=== PATIENT | female | born 1995 | race Caucasian/White ===

== ENCOUNTER 2021-08-05 06:47 | Inpatient (IN) | payer OTHER, SELFPAY ==
[2021-08-05 08:00] LABS: Add Manual Diff / Slide Review NO; Basophils Absolute Auto 100 /uL (0-100); Basophils Percent Auto 0.8 % (0-2); Eosinophils Absolute Auto 100 /uL (0-450); Eosinophils Percent Auto 0.9 % (2-4); Hematocrit 28.7 % (36-46); Hemoglobin 9.8 g/dL (12.0-16.0); Lymphocytes Absolute Auto 1600 /uL (1100-4500); Lymphocytes Percent Auto 21.3 % (25-40); Mean Corpuscular Hemoglobin 26.7 PG (26-34); Mean Corpuscular Volume 78.5 fL (80-100); Monocytes Absolute Auto 600 /uL (0-900); Monocytes Percent Auto 8.1 % (3-14); Neutrophils Absolute Auto 5100 /uL (1500-7000); Neutrophils Percent Auto 68.9 % (50-75); Platelet Count 255 X10^3/uL (150-400); Red Blood Cell Count 3.66 X10^6/uL (4.0-5.2); Red Cell Distribution Width 13.3 % (11.6-14.8); White Blood Cell Count 7.4 X10^3/uL (4.5-11.0)
[2021-08-05] MEDS: PENICILLIN G POTASSIUM 5,000,000 UNIT in DEXTROSE 5% IN WATER 250 ML 250 UNIT IV (08:12)
[2021-08-05] MEDS: LACTATED RINGERS 1,000 ML 100 ML IV ×2 (08:18→19:37)
[2021-08-05 08:35] LABS: COVID19 -Nasal RAPID Negative (Negative)
[2021-08-05 09:00] VITALS: BP 117/74
--- NOTE | 2021-08-05 09:41 | PM.OBHP.1 ---
OB HPI Date/Time Date of admission: 08/05/21 Date Patient Seen: 08/05/21 Time Patient Seen: 09:41 History of Present Condition Chief complaint: induction : 3 Para: 1 Estimated Date of Delivery: 08/12/21 Estimated Gestational Age (weeks): 39 Narrative: Lexi Mclean is a 26 year old female admitted for induction for poorly controlled gestational diabetes on metformin Indications Indication for induction OB: gestational diabetes (Poorly controlled on metformin) History of Present care: good care, initiated at week # (11), number of visits (11) and pounds weight gain (2) Dating criteria: based on 1st trimester US only Ultrasounds: normal mid trimester US Obstetrical complications: gestational diabetes (Poorly controlled on metformin) Medical complications: none Preadmission Labs Blood type: B (+) positive -: Antibody screen: negative, GBS status: positive, HBsAG: negative, HIV: negative and RPR/VDLR: negative -: Rubella: immune 1 hr GTT: 154 Fasting blood glucose: 146 Prior (ies) History: 07/01/15 41 week gestation, 9 lb infant, 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 involement occupational status: employed Smoking Status: Former smoker Meds Home Medications and Allergies Home Medications Medication Instructions Recorded Confirmed Type metformin 500 mg tablet 500 mg PO BID 07/30/21 08/05/21 History prenat.vits,nikky,mpt-wxpz-zhmps 1 tab PO DAILY 07/30/21 08/05/21 History Allergies Allergy/AdvReac Type Severity Reaction Status Date / Time Sulfa (Sulfonamide Allergy Severe coma Verified 08/05/21 09:22 Antibiotics) Review of Systems Review of Systems Narrative: Patient denies headaches, scotomata, epigastric pain. Good movement. No leakage of fluid. No contractions. OB Exam Narrative Exam Narrative: Blood pressure 117/74, pulse of 115, patient is afebrile HEENT exam within normal limits. No thyromegaly. Lungs are clear to auscultation percussion. Heart is regular rate and rhythm no S3-S4 murmurs. Abdomen is gravid, nontender. Fetus is vertex. Extremities without edema and nontender. Objective Labs Result Diagrams: 08/05/21 07:54 Labs: Laboratory Results - last 24 hr 08/05/21 08/05/21 08/05/21 07:54 07:54 08:02 WBC 7.4 RBC 3.66 L Hgb 9.8 L Hct 28.7 L MCV 78.5 L MCH 26.7 MCHC 34.0 RDW 13.3 Plt Count 255 Neut % (Auto) 68.9 Lymph % (Auto) 21.3 L [place] % (Auto) 8.1 Eos % (Auto) 0.9 L Baso % (Auto) 0.8 Neut # (Auto) 5100 Lymph # (Auto) 1600 [place] # (Auto) 600 Eos # (Auto) 100 Baso # (Auto) 100 SARS-CoV-2 (PCR) Negative Blood Type B Positive Antibody Screen Negative Assessment and Plan Assessment and Plan Assessment and Plan narrative: 39 week gestation with uncontrolled gestational diabetes on metformin transferred firm advise for delivery in the hospital. Patient declines Pitocin but accepts AROM induction. Anticipate vaginal delivery.
[2021-08-05] MEDS: PENICILLIN POTASSIUM IV ×2 (14:42→20:33)
[2021-08-05] MEDS: WATER IV ×2 (14:42→20:33)
[2021-08-05] MEDS: DEXTROSE 5% IV ×2 (14:42→20:33)
[2021-08-05] MEDS: CALCIUM CARBONATE 500 MG TAB 1000 MG PO (15:33)
--- NOTE | 2021-08-05 18:33 | PM.OBPNLAB ---
Date/Time Date Patient Seen: 08/05/21 Time Patient Seen: 18:33 Pain Control Pain control: tolerating well Pelvic Exam Dilation (cm): 8 Effacement (%): 80 station: -2 Amniotic membrane status: Ruptured Contractions Contractions on admission: irregular Monitor mode: External Contraction frequency (min): 4 Contraction duration (min): 1 Contraction pattern: Irregular Contraction intensity: Moderate Status status: Category l Heart Rate Baseline: 140 Monitor Accelerations: Present Monitor Decelerations: Absent Monitor Variability: Moderate Assessment and Plan Assessment: active labor Plan: continuous present management (Patient has had change in her cervix but contractions still irregular offered Pitocin patient will decide)
[2021-08-05] MEDS: OXYTOCIN PREMIX 30 UNIT/500 ML PLAST..BAG 200 UNIT IV (19:38)
[2021-08-05] MEDS: OXYTOCIN 10 UNIT/ML VIAL IM (21:57)
--- NOTE | 2021-08-05 22:02 | PM.OBPRVD ---
Events: Gestational Diabetes (Poor control with metformin) and Labor Induction (AROM and IV Pitocin) Labor & Delivery Delivery date: 08/05/21 Intrapartal Events: None Induction method: AROM Delivery augmentation: pitocin Delivery monitor: external FHT and external uterine Route of delivery: L&D Laceration Description: None Estimated blood loss (mL): 300 Anesthesia Type: None Narrative: Patient arrived on Labor and delivery for induction for poorly controlled diabetes with metformin. The patient was started on IV penicillin for positive group B strep culture. She was AROM for clear fluid. Eventually with no significant progress the patient was agreeable to start low-dose Pitocin. She then went into active labor. heart tones category 1 to category 2 throughout labor. Just prior to becoming complete the fetus had some variable decelerations but remained with good cyct-ff-mprp variability. The baby delivered spontaneously, over an intact perineum. The viable female was placed on the maternal abdomen and after the cord stopped pulsating the cord was clamped, cut, and cord bloods obtained. The placenta delivered spontaneously, intact, with 3 vessels. There was 1 gush of bleeding just prior to deliver the placenta but and her bleeding decreased significantly. She did receive the IV and IM Pitocin. There were no cervical, vaginal, or perineal tears. Both infant and mother doing well. During labor checks of maternal blood sugars were 102 and 89. [place] Baby 1: gender: Female Presentation: vertex Position: Left Occiput Anterior Placenta delivery description: Spontaneous Cord Vessel Description: 3 Vessels score (1 min): 8 score (5 min): 9 Plan for aftercare: Routine care
[2021-08-05] MEDS: ACETAMINOPHEN 325 MG TABLET 650 MG PO (23:18)
[2021-08-05] MEDS: IBUPROFEN 600 MG TABLET PO (23:18)
[2021-08-06 05:20] LABS: Add Manual Diff / Slide Review NO; Basophils Absolute Auto 0 /uL (0-100); Basophils Percent Auto 0.2 % (0-2); Eosinophils Absolute Auto 0 /uL (0-450); Hematocrit 28.6 % (36-46); Hemoglobin 9.6 g/dL (12.0-16.0); Lymphocytes Absolute Auto 1700 /uL (1100-4500); Lymphocytes Percent Auto 9.4 % (25-40); Mean Corpuscular HGB Conc 33.6 % (30-36); Mean Corpuscular Hemoglobin 26.4 PG (26-34); Mean Corpuscular Volume 78.5 fL (80-100); Monocytes Absolute Auto 1200 /uL (0-900); Monocytes Percent Auto 6.3 % (3-14); Neutrophils Absolute Auto 15600 /uL (1500-7000); Neutrophils Percent Auto 84.1 % (50-75); Platelet Count 284 X10^3/uL (150-400); Red Blood Cell Count 3.65 X10^6/uL (4.0-5.2); Red Cell Distribution Width 13.3 % (11.6-14.8); White Blood Cell Count 18.6 X10^3/uL (4.5-11.0)
--- NOTE | 2021-08-06 08:38 | P.DS_ITS ---
Discharge Providers Provider Date of admission: 08/05/21 06:47 Discharge Date: 08/06/21 Primary care physician: Doctor Delgado MD Consults: 08/06/21 22:09 Consult to Synthetic Resin Operator Routine Comment: Discharge provider: Sigrid Segura MD Summary Hospital Course Date Patient Seen: 08/06/21 Time Patient Seen: 08:39 Diagnoses: 39 week gestation with poorly controlled gestational diabetes on metformin admitted for induction Hospital Course: Patient arrived on Labor and delivery and had AROM for induction of labor. She received IV penicillin for positive group B strep culture. She had slow progress in labor and eventually was started on IV Pitocin. She had a spontaneous vaginal delivery of a viable female infant weighing 9 lb 8 oz with Apgars of 8 and 9. Patient's blood sugars were good throughout labor. The patient had appropriate bleeding . Her hematocrit did not changed from pre delivery to post delivery. Patient denies any headaches, scotomata, epigastric pain. Mild bleeding. No pain other than appropriate cramping. Baby is well. Peripartum Data Delivery Method: Natural Vaginal Laceration Description: None Procedures: AROM followed by IV Pitocin induction. IV penicillin for positive group B strep culture. Spontaneous vaginal delivery. complications: none 1: Gender: Female Disposition of : home Discharge Diagnosis (1) Chronic iron deficiency anemia: Status: Acute (2) Vaginal delivery: Status: Acute (3) Gestational diabetes mellitus (GDM) affecting second : Status: Acute Status at Discharge Cognitive/behavioral status at discharge: oriented Functional status at discharge: independent ambulation Overall status at discharge: patient is progressing back to baseline Time Spent with Patient Time attestation: Total time spent providing and/or coordinating discharge services: Time spent: Less than 30 minutes Objective Labs Result Diagrams: 08/06/21 05:06 Labs: Laboratory Results - last 24 hr 08/06/21 05:06 WBC 18.6 H D RBC 3.65 L Hgb 9.6 L Hct 28.6 L MCV 78.5 L MCH 26.4 MCHC 33.6 RDW 13.3 Plt Count 284 Neut % (Auto) 84.1 H Lymph % (Auto) 9.4 L [place] % (Auto) 6.3 Eos % (Auto) 0.0 L Baso % (Auto) 0.2 Neut # (Auto) 50668 H Lymph # (Auto) 1700 [place] # (Auto) 1200 H Eos # (Auto) 0 Baso # (Auto) 0 Exam Vital Signs (past 8 hours): Blood pressure 113/57, pulse 97, temperature 97.3? Narrative Exam Narrative: Abdomen is soft, nontender. Uterus is firm, at U, nontender. Mild lochia. Extremities without edema and nontender. Patient is rubella immune and Rh positive Discharge Plan Discharge Plan Patient Disposition: Home Provider Discharge Comment: Precautions reviewed with the patient to call for signs or symptoms of preeclampsia, DVT, infection, depression. Discharge orders & Medications Prescriptions: New ferrous sulfate 325 mg (65 mg iron) Tablet 325 mg PO DAILY Qty: 30 0RF Continued prenat.vits,nikky,jox-lajk-aeknc Tablet 1 tab PO DAILY 0RF Discontinued metformin 500 mg tablet 500 mg PO BID 0RF Follow up/Referrals: Michelle Sy CNM [[facility]] - 6 Weeks Doctor Natarajan MD [Primary Care Provider] - Diet/Activity/Treatments Diet: Regular Activity: Nothing in vagina for 6 weeks Skin/Wound/Dressing Care Report to your healthcare provider any signs of infection, such as:: chills, fever and increased pain Discharge Data Primary Care Provider: Doctor Delgado
[2021-08-06] MEDS: ACETAMINOPHEN 325 MG TABLET 650 MG PO (10:26)
[2021-08-06] MEDS: FERROUS SULFATE 325 MG TABLET PO (10:26)
[2021-08-06 12:44] VITALS: BP 117/74
== END 2021-08-06 17:25 | disposition home or self-care (01) | DRG 807 ==
PROVIDERS: Admitting Provider Specialist; Referring Provider Specialist; Visit Provider Specialist
DX: O24.425 Gestational diabetes mellitus in childbirth, controlled by oral hypoglycemic drugs (principal); Z37.0 Single live birth; Z3A.39 39 weeks gestation of pregnancy; O99.824 Streptococcus B carrier state complicating childbirth; O76 Abnormality in fetal heart rate and rhythm complicating labor and delivery; Z20.822 Contact with and (suspected) exposure to COVID-19
CPT/HCPCS: 36415; 59050; 59410; 85025; 86850; 86900; 86901; 87635; C9803; G0379; J2540; J2590